=== PATIENT | female | born 1960 | race Caucasian/White ===

== ENCOUNTER 2022-05-06 14:29 | Outpatient (CLI) | payer BC, SELFPAY ==
--- NOTE | 2022-05-06 14:40 | CRLHL7_ITS ---
For Patients: As a result of the Century Cures Act, medical imaging exams and procedure reports are released immediately into your electronic medical record. You may view this report before your referring provider. If you have questions, please contact your health care provider. BILATERAL SCREENING MAMMOGRAM WITH COMPUTER-AIDED DETECTION TECHNIQUE: CC and MLO views were obtained. These mammographic images have been obtained using full-field digital technique. These mammographic images were interpreted with the benefit of computer-aided detection. COMPARISON FILM: 04/05/18, 02/03/16, 02/15/2014 Right diagnostic, 02/05/14. FINDINGS: The breasts are almost entirely fatty IMPRESSION: There is no radiographic evidence for malignancy. ASSESSMENT: BI-RADS Category 1: Negative RECOMMENDATION: Routine screening mammogram in 1 year. A lay language report of this examination will be provided to the patient. David Mcgill M.D. Diagnostic Radiologist [email or web address] SKYLA/Dictated by: David Mcgill MD @ 05/07/2022 8:53:00 AM (Electronically Signed)
--- NOTE | 2022-05-06 15:00 | CRLHL7_ITS ---
For Patients: As a result of the Century Cures Act, medical imaging exams and procedure reports are released immediately into your electronic medical record. You may view this report before your referring provider. If you have questions, please contact your health care provider. DXA BONE MINERAL DENSITY STUDY Current height (in): 64. Weight (lbs): 175. Menopause age: 33. Ethnicity: White. 1. Have you had a previous hip or vertebral fracture? No. 2. Have you had any fractures during your adult life which did not result from significant trauma (e.g., auto accident)? No. 3. Did either of your parents have a hip fracture? No. 4. Do you smoke? No. 5. Have you ever taken Glucocorticoids? No. 6. Do you have rheumatoid arthritis? No. 7. Do you have secondary osteoporosis? No. 8. Do you drink 3 or more alcoholic drinks per day? No. 9. Are you being treated for osteoporosis? No. 10. Have you ever taken any of the following medications: Actonel, Evista, Fosamax, Miacalcin, Reclast, Boniva, Forteo, HRT (i.e. estrogen/hormone therapy), Protelos, Prolia, Vitamin D, Calcium, other ??? please specify. ANSWER: Yes, vitamin D and calcium. 11. Do you have any of the following medical conditions: Anorexia or bulimia, asthma or emphysema, end stage renal disease, hyperparathyroidism, any seizure disorders, cancer, inflammatory bowel diseases, hysterectomy, other ??? please specify. ANSWER: Yes, asthma or emphysema, inflammatory bowel disease, and hysterectomy. 12. What was your maximum height (inches)? 64. 13. Do you perform weight bearing exercise regularly? No. 14. Do you regularly consume dairy products? Yes. 15. Do you drink caffeinated beverages? Yes. If female: 16. At what age did your period start? 10. 17. Are you premenopausal? No. 18. How many full term pregnancies have you had? 2. 19. Have you ever missed your period for more than 6 months in a row (not including or menopause)? No. TECHNIQUE: Bone mineral density study was performed using the [employer]. FINDINGS: The results of the study expressed as bone mineral density (BMD) are as follows: Lumbar spine L1 to L4: BMD: 0.822 g/cm2. T-score: -2.0. Z-score: -0.4 Neck Left: BMD: 0.645 g/cm2. T-score: -1.8. Z-score: -0.4 Right: BMD: 0.653 g/cm2. T-score: -1.8. Z-score: -0.3 Total Left: BMD: 0.728 g/cm2. T-score: -1.8. Z-score: -0.6 Right: BMD: 0.785 g/cm2. T-score: -1.3. Z-score: -0.1 IMPRESSION: Osteopenia. *Comparison exams done prior to 01/2020 were performed on different unit, [employer]. COMPARISON: Compared with scan of 10/20/2010, the bone mineral density has decreased by 9.3 percent at the spine and decreased by 7.7 percent at the hip. FRAX 10-year Fracture Risk Major Osteoporotic Fracture: 9.4% Hip Fracture: 1.1% Reported Risk Factors: [place] () Neck BMD=0.645, BMI=30.0 David Mcgill M.D. Diagnostic Radiologist [email or web address]/Dictated by: David Mcgill MD @ 05/07/2022 9:00:00 AM (Electronically Signed)
== END 2022-05-06 14:30 | disposition home or self-care (01) ==
PROVIDERS: PCP Family Medicine; Visit Provider Physician Assistant Medical
DX: Z12.31 Encounter for screening mammogram for malignant neoplasm of breast (principal); M85.80 Other specified disorders of bone density and structure, unspecified site; M85.89 Other specified disorders of bone density and structure, multiple sites
CPT/HCPCS: 77063; 77067; 77080

== ENCOUNTER 2022-10-24 11:29 | Outpatient (CLI) | payer BC, SELFPAY | END 2022-10-24 11:30 | disposition home or self-care (01) | PROVIDERS: PCP Physician Assistant Medical; Referring Provider Physician Assistant Medical; Visit Provider Nurse Practitioner Family | DX: R30.0 Dysuria (principal); N39.0 Urinary tract infection, site not specified | CPT/HCPCS: 87086; 87186 ==

== ENCOUNTER 2022-11-04 13:31 | Outpatient (CLI) | payer BC, SELFPAY | END 2022-11-04 13:32 | disposition home or self-care (01) | PROVIDERS: PCP Physician Assistant Medical; Visit Provider Family Medicine | DX: Z00.00 Encounter for general adult medical examination without abnormal findings (principal); E55.9 Vitamin D deficiency, unspecified; I10 Essential (primary) hypertension; E78.5 Hyperlipidemia, unspecified; R30.0 Dysuria | CPT/HCPCS: 80053; 80061; 82043; 82306; 82570 ==

== ENCOUNTER 2023-01-20 13:09 | Outpatient (CLI) | payer BC, SELFPAY ==
[2023-01-20 21:49] LABS: Creatinine Urine 55.7 mg/dL
[2023-01-20 21:53] LABS: Microalbumin Creatinine Ratio 80 mg/g (0-30); Microalbumin Urine 5 mg/dL
== END 2023-01-20 13:10 | disposition home or self-care (01) ==
PROVIDERS: PCP Physician Assistant Medical; Visit Provider Family Medicine
DX: I10 Essential (primary) hypertension (principal); N39.0 Urinary tract infection, site not specified
CPT/HCPCS: 82043; 82570; 87045; 87046; 87086; 87177; 87186; 87209; 87427

== ENCOUNTER 2023-03-15 09:07 | Outpatient (CLI) | payer BC, SELFPAY | END 2023-03-15 09:08 | disposition home or self-care (01) | PROVIDERS: PCP Physician Assistant Medical; Visit Provider Family Medicine | DX: R30.0 Dysuria (principal) | CPT/HCPCS: 87086 ==

== ENCOUNTER 2023-04-13 19:22 | Outpatient (CLI) | payer BC, SELFPAY | END 2023-04-13 19:23 | disposition home or self-care (01) | PROVIDERS: PCP Physician Assistant Medical; Visit Provider Registered Nurse | DX: R10.9 Unspecified abdominal pain (principal) | CPT/HCPCS: 80076; 83690 ==

== ENCOUNTER 2023-05-05 13:30 | Outpatient (RCR) | payer BC, SELFPAY | END 2023-08-24 14:30 | disposition home or self-care (01) | PROVIDERS: PCP Physician Assistant Medical; Visit Provider Family Medicine | DX: N39.0 Urinary tract infection, site not specified (principal); R35.0 Frequency of micturition; R10.2 Pelvic and perineal pain; R39.15 Urgency of urination; Z51.89 Encounter for other specified aftercare | CPT/HCPCS: 97012; 97110; 97112; 97140; 97162; 97535 ==

== ENCOUNTER 2024-03-20 07:58 | Outpatient (CLI) | payer BC, SELFPAY | END 2024-03-20 07:59 | disposition home or self-care (01) | PROVIDERS: PCP Family Medicine; Visit Provider Family Medicine | DX: Z00.00 Encounter for general adult medical examination without abnormal findings (principal); I10 Essential (primary) hypertension; E78.5 Hyperlipidemia, unspecified; E55.9 Vitamin D deficiency, unspecified; M85.80 Other specified disorders of bone density and structure, unspecified site; N28.0 Ischemia and infarction of kidney; Z11.59 Encounter for screening for other viral diseases; Z13.1 Encounter for screening for diabetes mellitus | CPT/HCPCS: 80053; 80061; 82043; 82570; 86803 ==

== ENCOUNTER 2024-03-28 12:26 | Outpatient (CLI) | payer BC, SELFPAY ==
--- NOTE | 2024-03-28 13:00 | CRLHL7_ITS ---
For Patients: As a result of the Cures Act, medical imaging exams and procedure reports are released immediately into your electronic medical record. You may view this report before your referring provider. If you have questions, please contact your health care provider. TECHNIQUE: Ultrasound of the abdominal aorta. INDICATION: Screening for AAA. History of nicotine dependence. FINDINGS: Proximal abdominal aorta: 2.6 cm. Middle aorta: 1.9 cm. Distal aorta: 1.7 cm. Right iliac artery: 1.1 cm. Left iliac artery: 1.1 cm. IMPRESSION: No evidence for abdominal aortic aneurysm. Dictated by Rigoberto Gonzalez MD @ 03/29/2024 9:24:40 AM (Electronically Signed)
--- NOTE | 2024-03-28 14:00 | CRLHL7_ITS ---
For Patients: As a result of the Century Cures Act, medical imaging exams and procedure reports are released immediately into your electronic medical record. You may view this report before your referring provider. If you have questions, please contact your health care provider. INDICATION: Lung cancer screening. History of smoking. High risk patient with 45 pack-year smoking history. TECHNIQUE: Low-dose lung cancer screening non-contrast CT chest. Dose reduction techniques were used. COMPARISON: None. FINDINGS: NODULES: 3 mm solid nodule right upper lobe image 25 series 3. 3 mm nodule left lower lobe image 106. LUNGS AND PLEURA: Mild scarring in the anterior mid lungs. MEDIASTINUM: Possible left thyroid nodule measuring up to 1.9 cm. 4.0 cm ascending aorta. CORONARY ARTERY CALCIFICATION: None. LIMITED UPPER ABDOMEN: Visualized right kidney is atrophic. MUSCULOSKELETAL: Normal. IMPRESSION: 1. Negative for lung cancer screening purposes. 2. Possible left thyroid nodule. Recommend thyroid ultrasound if not previously performed. 3. 4.0 cm ascending aorta. 4. Atrophic right kidney. LUNG-RADS CATEGORY 2S: Benign. Potentially significant non lung cancer findings. Continue annual screening with low-dose CT chest in 12 months. Please note that all CT scans at this facility use dose modulation, iterative reconstruction, and/or weight-based dosing when appropriate to reduce radiation dose to as low as reasonably achievable. Dictated by Rigoberto Gonzalez MD @ 03/29/2024 9:33:15 AM (Electronically Signed)
== END 2024-03-28 12:27 | disposition home or self-care (01) ==
LOC: US 12:26
PROVIDERS: PCP Family Medicine; Visit Provider Family Medicine
DX: Z13.6 Encounter for screening for cardiovascular disorders (principal); E04.1 Nontoxic single thyroid nodule; Z12.2 Encounter for screening for malignant neoplasm of respiratory organs; Z87.891 Personal history of nicotine dependence
CPT/HCPCS: 71271; 76775

== ENCOUNTER 2024-04-07 13:34 | Outpatient (CLI) | payer BC, SELFPAY ==
--- NOTE | 2024-04-07 14:00 | CRLHL7_ITS ---
For Patients: As a result of the Century Cures Act, medical imaging exams and procedure reports are released immediately into your electronic medical record. You may view this report before your referring provider. If you have questions, please contact your health care provider. INDICATION: Thyroid nodule on CT COMPARISON: 03/28/2024 TECHNIQUE: Sparrow scale and color Doppler images were acquired of the thyroid gland. FINDINGS: Hypoechoic nodule right thyroid lobe measures 8 x 6 x 9 millimeters, TR 4. Solid and cystic nodule left thyroid lobe measures 2.4 x 1.9 x 2.1 cm, TR 3. Isthmus measures 3.9 millimeters. The right lobe measures 5.1 x 1.6 x 1.4 cm and the left lobe measures 5.3 x 1.9 x 1.4 cm in size. Thyroid echotexture is mildly heterogeneous. The color Doppler images demonstrate increased vascularity. There is no evidence of cervical lymphadenopathy or parathyroid mass. IMPRESSION: Bilateral thyroid nodules. Follow-up in 1 year recommended. Dictated by David Mcgill MD @ 04/07/2024 3:00:24 PM (Electronically Signed)
== END 2024-04-07 13:35 | disposition home or self-care (01) ==
LOC: US 13:35
PROVIDERS: PCP Family Medicine; Visit Provider Family Medicine
DX: E07.9 Disorder of thyroid, unspecified (principal)
CPT/HCPCS: 76536

== ENCOUNTER 2024-04-11 14:15 | Outpatient (CLI) | payer BC, SELFPAY | END 2024-04-11 14:16 | disposition home or self-care (01) | LOC: NFLDREF 04-13 12:28 | PROVIDERS: PCP Family Medicine; Referring Provider Family Medicine; Visit Provider Family Medicine | DX: E07.9 Disorder of thyroid, unspecified (principal) | CPT/HCPCS: 84443 ==

== ENCOUNTER 2024-09-22 14:06 | Outpatient (CLI) | payer BC, SELFPAY ==
--- NOTE | 2024-09-22 14:30 | CRLHL7_ITS ---
For Patients: As a result of the Century Cures Act, medical imaging exams and procedure reports are released immediately into your electronic medical record. You may view this report before your referring provider. If you have questions, please contact your health care provider. CLINICAL HISTORY: Increased headaches; family history of cerebral aneurysms. TECHNIQUE: 3D TOF MRA of the head was performed. 3D MIP reformats were performed at an independent workstation. COMPARISON: None available. FINDINGS: The petrous, cavernous, and supraclinoid segments of the internal carotid arteries are patent. The anterior and middle cerebral arteries are patent. The anterior communicating artery is visualized and within normal limits. The intracranial vertebral arteries, basilar trunk, and posterior cerebral arteries are patent. No intracranial proximal large vessel occlusion or flow-limiting luminal stenosis. There is a 6mm left superior hypophyseal ICA aneurysm as well as a 3mm left cavernous ICA aneurysm. IMPRESSION: 6mm left superior hypophyseal ICA aneurysm as well as a 3mm left cavernous ICA aneurysm. For consultation with our Neurointerventional service at [facility] regarding this patient`s cerebral aneurysms, please call [phone] to make arrangements with our coordinator. Dictated by Terrence Valentino MD @ 09/22/2024 11:12:20 PM (Electronically Signed)
== END 2024-09-22 14:07 | disposition home or self-care (01) ==
LOC: MRI 14:07
PROVIDERS: PCP Family Medicine; Visit Provider Family Medicine
DX: R51.9 Headache, unspecified (principal); I67.1 Cerebral aneurysm, nonruptured; I72.9 Aneurysm of unspecified site; I77.3 Arterial fibromuscular dysplasia
CPT/HCPCS: 70544

== ENCOUNTER 2024-10-12 14:59 | Outpatient (CLI) | payer BC, SELFPAY | END 2024-10-12 15:00 | disposition home or self-care (01) | PROVIDERS: PCP Family Medicine; Visit Provider Family Medicine | DX: M85.89 Other specified disorders of bone density and structure, multiple sites (principal); F17.210 Nicotine dependence, cigarettes, uncomplicated | CPT/HCPCS: 77080 ==

== ENCOUNTER 2025-05-28 15:48 | Outpatient (CLI) | payer BC, SELFPAY ==
--- NOTE | 2025-05-28 16:00 | CRLHL7_ITS ---
For Patients: As a result of the Century Cures Act, medical imaging exams and procedure reports are released immediately into your electronic medical record. You may view this report before your referring provider. If you have questions, please contact your health care provider. INDICATION: Lung cancer screening. History of smoking. High risk patient with greater than 20 pack-year smoking history. TECHNIQUE: Low-dose lung cancer screening non-contrast CT chest. Dose reduction techniques were used. COMPARISON: 03/28/[address] FINDINGS: NODULES: Stable 3 mm nodules in the right upper lobe on image 25 and left lower lobe on image 102 of series 3. No new nodules. LUNGS AND PLEURA: Mild scarring in the anterior mid lungs. MEDIASTINUM: Stable 4 cm ascending aorta. CORONARY ARTERY CALCIFICATION: None. LIMITED UPPER ABDOMEN: Right kidney is atrophic. MUSCULOSKELETAL: Normal. IMPRESSION: 1. Negative for lung cancer screening purposes. LUNG-RADS CATEGORY 2: Benign. Continue annual screening, if eligible, with low-dose CT chest in 12 months. Please note that all CT scans at this facility use dose modulation, iterative reconstruction, and/or weight-based dosing when appropriate to reduce radiation dose to as low as reasonably achievable. Dictated by Rigoberto Gonzalez MD @ 05/29/2025 1:26:48 PM (Electronically Signed)
--- NOTE | 2025-05-28 16:45 | CRLHL7_ITS ---
For Patients: As a result of the Century Cures Act, medical imaging exams and procedure reports are released immediately into your electronic medical record. You may view this report before your referring provider. If you have questions, please contact your health care provider. INDICATION: F/U thyroid nodule COMPARISON: 04/07/2024 TECHNIQUE: Sparrow scale and color Doppler images were acquired of the thyroid gland. FINDINGS: This is measures 4.5 millimeters. Solid and cystic nodule left thyroid lobe measures 2.6 x 1.8 x 1.9 cm, TR 3, previously measuring 2.4 cm. Solid nodule right thyroid lobe measures 9 x 7 x 10 millimeters, TR 4, previously measuring 9 millimeters. The right lobe measures 5.9 x 1.9 x 1.8 cm and the left lobe measures 5.4 x 1.8 x 1.6 cm in size. The color Doppler images demonstrate normal vascularity. There is no evidence of cervical lymphadenopathy or parathyroid mass. IMPRESSION: Stable bilateral thyroid nodules. Dictated by David Mcgill MD @ 05/29/2025 8:34:36 AM (Electronically Signed)
== END 2025-05-28 15:49 | disposition home or self-care (01) ==
LOC: CT 15:48
PROVIDERS: PCP Family Medicine; Visit Provider Family Medicine
DX: Z12.2 Encounter for screening for malignant neoplasm of respiratory organs (principal); Z87.891 Personal history of nicotine dependence; E07.9 Disorder of thyroid, unspecified
CPT/HCPCS: 71271; 76536

== ENCOUNTER 2025-07-18 13:13 | Outpatient (CLI) | payer BC, SELFPAY | END 2025-07-18 13:14 | disposition home or self-care (01) | LOC: FRMREF 13:14 | PROVIDERS: PCP Family Medicine; Visit Provider Family Medicine | DX: E07.9 Disorder of thyroid, unspecified (principal); E55.9 Vitamin D deficiency, unspecified | CPT/HCPCS: 80053; 80061; 82043; 82306; 82570; 84443 ==

== ENCOUNTER 2025-08-14 09:56 | Outpatient (CLI) | payer BC, SELFPAY ==
--- NOTE | 2025-08-14 11:19 | P.ANES_ITS ---
Anesthesia Charges Start Date/Time Anesthesia Start Date: 08/14/25 Anesthesia Start Time: 10:58 Stop Date/Time Anesthesia Stop Date: 08/14/25 Anesthesia Stop Time: 11:17 Coding CPT Codes CPT Codes: ANES UPR GI NDSC PX NOS - 77840 ([id number]) P3 - PATIENT W/SEVERE SYS DISEASE, QZ - BINDERY OPERATOR SVC W/O PLEATER BY
--- NOTE | 2025-08-14 11:19 | W.ANESCHARGE ---
Anesthesia Charges Start Date/Time Anesthesia Start Date: 08/14/25 Anesthesia Start Time: 10:58 Stop Date/Time Anesthesia Stop Date: 08/14/25 Anesthesia Stop Time: 11:17 Coding CPT Codes CPT Codes: ANES UPR GI NDSC PX NOS - 33794 ([id number]) P3 - PATIENT W/SEVERE SYS DISEASE, QZ - CHIEF DEPUTY CORONER SVC W/O PERSONNEL PSYCHOLOGIST BY
== END 2025-08-14 09:57 | disposition home or self-care (01) ==
LOC: OP CLINIC 09:59
PROVIDERS: PCP Family Medicine; Visit Provider Surgery
DX: K21.9 Gastro-esophageal reflux disease without esophagitis (principal); K31.7 Polyp of stomach and duodenum; K22.89 Other specified disease of esophagus; K44.9 Diaphragmatic hernia without obstruction or gangrene
CPT/HCPCS: 00731; 43239; J2704